=== PATIENT | female | born 1960 | race Caucasian/White ===

== ENCOUNTER 2019-08-29 19:27 | Emergency (ER) | payer MEDICAID ==
[~2019-08-29] VITALS: Ht 152.4 cm; Wt 78.0 kg
[2019-08-29] MEDS ORDERED: HYDROCODONE/ACETAMINOPHEN 5/325MG TABLET PO ONE (21:45)
[2019-08-30 00:13] VITALS: BP 145/97
== END 2019-08-30 00:15 | disposition home or self-care (01) ==
LOC: ER 19:50
DX: S92.515A Nondisplaced fracture of proximal phalanx of left lesser toe(s), initial encounter for closed fracture (principal); I10 Essential (primary) hypertension; E78.00 Pure hypercholesterolemia, unspecified; Z90.49 Acquired absence of other specified parts of digestive tract; W22.01XA Walked into wall, initial encounter; Y93.89 Activity, other specified; Y92.018 Other place in single-family (private) house as the place of occurrence of the external cause
CPT/HCPCS: 73630; 93005; 99283; Z7610

== ENCOUNTER 2019-12-26 16:13 | Emergency (ER) | payer MEDICAID ==
[~2019-12-26] VITALS: Ht 160 cm; Wt 68.0 kg
[2019-12-26] MEDS ORDERED: ACETAMINOPHEN 325MG TABLET PO ONE (16:45)
[2019-12-26 18:12] VITALS: BP 159/88
== END 2019-12-26 18:14 | disposition home or self-care (01) ==
LOC: ER 16:13
DX: S06.899A Other specified intracranial injury with loss of consciousness of unspecified duration, initial encounter (principal); Y08.89XA Assault by other specified means, initial encounter; Y93.89 Activity, other specified; Y92.89 Other specified places as the place of occurrence of the external cause; Y99.8 Other external cause status; E78.00 Pure hypercholesterolemia, unspecified; I10 Essential (primary) hypertension; Z90.49 Acquired absence of other specified parts of digestive tract
CPT/HCPCS: 72040; 99284

== ENCOUNTER 2022-11-06 02:49 | Emergency (ER) | payer MEDICAID ==
[~2022-11-06] VITALS: Ht 152.4 cm; Wt 73.0 kg
[2022-11-06 03:49] LABS: CLARITY URINE TURBID (CLEAR); COLOR URINE DARK YELLOW (YELLOW); KETONES URINE NEGATIVE (NEGATIVE); LEUKOCYTE ESTERASE URINE 1+ (NEGATIVE); NITRITE URINE POSITIVE (NEGATIVE); OCCULT BLOOD URINE NEGATIVE (NEGATIVE); PROTEIN URINE NEGATIVE (NEGATIVE); SPECIFIC GRAVITY URINE 1.011 (1.005-1.030)
[2022-11-06] MEDS ORDERED: IBUPROFEN 600MG TABLET PO ONE (05:15)
[2022-11-06] MEDS ORDERED: FLUC150T46 PO (05:20)
[2022-11-06] MEDS ORDERED: NAPR-681 PO (05:20)
[2022-11-06] MEDS ORDERED: SULF1TAB48 PO (05:20)
[2022-11-06 05:24] VITALS: BP 116/66
== END 2022-11-06 05:34 | disposition home or self-care (01) ==
LOC: ER 02:49
DX: N39.0 Urinary tract infection, site not specified (principal); E11.9 Type 2 diabetes mellitus without complications; I10 Essential (primary) hypertension; E78.00 Pure hypercholesterolemia, unspecified; Z90.49 Acquired absence of other specified parts of digestive tract
CPT/HCPCS: 81003; 99283

== ENCOUNTER 2023-09-10 17:31 | Emergency (ER) | payer MEDICAID ==
[~2023-09-10] VITALS: Ht 152.4 cm; Wt 76.7 kg
[~2023-09-10 17:31] MED LIST: FLUC150T46 PO; NAPR-681 PO; SULF1TAB48 PO
[2023-09-10 17:56] VITALS: BP 112/71; PULSE 100; RESP 16; TEMP 98.3; O2SAT 98
[2023-09-10 18:44] LABS: CLARITY URINE CLEAR (CLEAR); COLOR URINE YELLOW (YELLOW); GLUCOSE URINE 3+ (NEGATIVE); KETONES URINE NEGATIVE (NEGATIVE); LEUKOCYTE ESTERASE URINE NEGATIVE (NEGATIVE); NITRITE URINE NEGATIVE (NEGATIVE); OCCULT BLOOD URINE TRACE (NEGATIVE); PH URINE 5.5 (4.5-8.0); PROTEIN URINE NEGATIVE (NEGATIVE); SPECIFIC GRAVITY URINE 1.033 (1.005-1.030); UROBILINOGEN URINE 0.2 E.U./dL (0.2-1.0)
[2023-09-10 19:13] LABS: BACTERIA URINE 1+; RBC URINE 0-2 /hpf (0-2); SQUAMOUS EPITHELIAL CELL URINE 1+ /lpf (RARE/1+); YEAST URINE 1+
[2023-09-10 20:17] LABS: BASOPHILS % 0.7 % (0.0-2.0); EOSINOPHILS % 0.1 % (0.0-5.0); HEMATOCRIT. 46.5 % (36.0-48.0); HEMOGLOBIN. 15.7 g/dL (12.0-16.0); LYMPHOCYTES % 22.8 % (20.0-50.0); MEAN CORPUSCULAR HEMOGLOBIN 29.9 pg (28.0-32.0); MEAN CORPUSCULAR HGB CONC 33.6 g/dL (31.0-37.0); MEAN CORPUSCULAR VOLUME 88.8 fL (81.0-99.0); MEAN PLATELET VOLUME 7.9 fl (7.4-10.4); MONOCYTES % 9.9 % (2.0-8.0); NEUTROPHILS % 66.5 % (40.0-76.0); PLATELET 216 x1000/uL (130-400); RED BLOOD CELL COUNT 5.24 mill/uL (4.2-5.4); RED CELL DISTRIBUTION WIDTH 13.9 % (11.6-14.6); WHITE BLOOD COUNT 8.3 x1000/uL (4.5-11.0)
[2023-09-10 20:30] LABS: ALANINE AMINOTRANSFERASE 18 IU/L (10-49); ALBUMIN 4.9 g/dL (3.2-4.8); ASPARTATE AMINOTRANSFERASE 17 IU/L (<34); BILIRUBIN TOTAL 0.6 mg/dL (0.1-1.0); CALCIUM 9.7 mg/dL (8.7-10.4); CARBON DIOXIDE 27 mEq/L (21-32); CHLORIDE 102 mEq/L (98-107); CREATININE 0.9 mg/dL (0.6-1.0); GLUCOSE 196 mg/dL (70-105); PROTEIN TOTAL 8.7 g/dL (6.0-8.3); SODIUM 137 mEq/L (136-145); UREA NITROGEN BLOOD 11 mg/dL (9-23)
[2023-09-10] MEDS ORDERED: CEPH500C2 MT (20:58)
== END 2023-09-10 21:36 | disposition home or self-care (01) ==
LOC: ER 17:31
DX: U07.1 COVID-19 (principal); N39.0 Urinary tract infection, site not specified; E11.9 Type 2 diabetes mellitus without complications; E78.00 Pure hypercholesterolemia, unspecified; I10 Essential (primary) hypertension; Z90.49 Acquired absence of other specified parts of digestive tract
CPT/HCPCS: 36415; 71045; 80053; 81003; 85025; 87426; 87804; 99284

== ENCOUNTER 2024-04-27 21:08 | Emergency (ER) | payer MEDICAID ==
[~2024-04-27] VITALS: Ht 160 cm; Wt 78.0 kg
[~2024-04-27 21:08] MED LIST changes: +CEPH500C2 MT
[2024-04-27 21:25] VITALS: TEMP 98.2; O2SAT 98
[2024-04-27] MEDS ORDERED: HYDROCODONE/ACETAMINOPHEN 10/325MG TABLET PO ONE (22:45)
[2024-04-27] MEDS ORDERED: IBUPROFEN 800MG TABLET PO ONE (22:45)
[2024-04-27] MEDS ORDERED: AMOX-494 MT (22:58)
[2024-04-27] MEDS ORDERED: CHLO473M2 MT (22:58)
[2024-04-27] MEDS ORDERED: IBUP-2030 MT (22:58)
[2024-04-27] MEDS: HYDROCODONE/ACETAMINOPHEN 10/325MG TABLET PO NR (23:46)
[2024-04-27] MEDS: IBUPROFEN 800MG TABLET PO NR (23:46)
[2024-04-27 23:47] VITALS: BP 133/63; PULSE 82; RESP 16; O2SAT 94
== END 2024-04-27 23:51 | disposition home or self-care (01) ==
LOC: ER 21:08
DX: K08.89 Other specified disorders of teeth and supporting structures (principal); E11.9 Type 2 diabetes mellitus without complications; Z90.49 Acquired absence of other specified parts of digestive tract; Z79.899 Other long term (current) drug therapy
CPT/HCPCS: 99283